=== PATIENT | male | born 1995 | race Caucasian/White ===

== ENCOUNTER 2018-03-29 10:53 | Emergency (ER) | payer BC ==
[2018-03-29] MEDS ORDERED: COLACE PO ONE (11:42)
--- NOTE | 2018-03-29 11:43 | Emergency Department Report ---
Minor Respiratory - HPI Chief Complaint: Earache Stated Complaint: (R) EAR RINGING Time Seen by Provider: 03/29/18 11:41 Duration: 5 Days Pain Location: Ear Severity: moderate Minor Respiratory: Yes Able to Tolerate Fluids, Yes Ear Pain, No Rhinorrhea, No Sore Throat, No Cough, No Sick Contacts, No Hemoptysis, No Chest Pain, No Shortness of Breath, No Fever Other History: Patient is a 2-year-old male comes to the emergency room complaining of decreased hearing in his ears for over a year. He also reports tinnitus. Patient does appear hard of hearing on exam. Denies any other respiratory signs or symptoms. No fever. No trauma. ED Review of Systems ROS: Stated complaint: (R) EAR RINGING Other details as noted in HPI Comment: All other systems reviewed and negative Constitutional: denies: chills, fever Eyes: denies: eye pain ENT: as per HPI, ear pain, hearing loss, other (RINGING IN EAR) Respiratory: denies: cough Cardiovascular: denies: chest pain, palpitations Endocrine: denies: excessive sweating ED Past Medical Hx - Past Medical History Previous Medical History?: No - Surgical History Past Surgical History?: No - Social History Smoking Status: Never Smoker Substance Use Type: None - Medications Home Medications: Home Medications Medication Instructions Recorded Confirmed Last Taken Type Acetaminophen/Codeine [Tylenol #3] 1 tab PO Q6H PRN #25 tab 08/07/14 Unknown Rx Cyclobenzaprine [Flexeril 10mg] 10 mg PO TID PRN #30 tablet 08/07/14 Unknown Rx Ibuprofen [Motrin] 600 mg PO Q8H PRN #60 tablet 08/07/14 Unknown Rx Minor Respiratory Exam - Exam General: Vital signs noted. No distress. Alert and acting appropriately. HEENT: Yes Moist Mucous Membranes, No Pharyngeal Erythema, No Pharyngeal Exudates, No Rhinorrhea, No Conjuctival Injection, No Frontal Tenderness, No Maxillary Tenderness Ear: Both EAC Discharge, Neither TM Bulge, Neither TM Erythema, Neither EAC Pain Neck: Yes Supple, No Adenopathy Lungs: Yes Good Air Exchange, No Wheezes, No Ronchi, No Stridor, No Cough, No Labored Respirations, No Retractions, No Use of Accessory Muscles, No Other Abnormal Lung Sounds Heart: Yes Regular, No Murmur Abdomen: Yes Normal Bowel Sounds, No Tenderness, No Peritoneal Signs Skin: No Rash, No Edema Neurologic: Alert and oriented, no deficits. Musculoskeletal: Unremarkable. ED Course Vital Signs 03/29/18 11:12 Temperature 99 F Pulse Rate 91 H Respiratory 16 Rate Blood Pressure 121/77 O2 Sat by Pulse 99 Oximetry ED Medical Decision Making - Medical Decision Making B WAX IMPACTION COLACE USED TO SOFTEN WAS REMOVED WITH GENTLE NS FLUSH DC HOME W DC INSTRUCTIONS - Differential Diagnosis SIMPLE EAR Critical care attestation.: If time is entered above; I have spent that time in minutes in the direct care of this critically ill patient, excluding procedure time. ED Disposition Clinical Impression: Impacted ear wax Disposition: DC-01 TO HOME OR SELFCARE Is pt being admited?: No Does the pt Need Aspirin: No Condition: Stable Instructions: Cerumen Impaction (ED) Additional Instructions: DO NOT PUT ANYTHING IN YOUR EAR NO FINGER NO QTIP NO PEROXIDE MOTRIN OR TYLENOL FOR PAIN USE CERUMENEX OVER THE COUNTER TO CLEAN YOUR EARS SEVERAL TIMES PER DAY FOLLOW UP WITH PCP OR ENT IF PROBLEM PERSISTS Referrals: ENRIQUE BRUNNER [Primary Care Provider] - 3-5 Days Time of Disposition: 12:25
[2018-03-29 15:29] VITALS: BP 121/77
== END 2018-03-29 12:50 | disposition home or self-care (01) ==
LOC: ED 10:53
DX: H61.21 Impacted cerumen, right ear (principal)
CPT/HCPCS: 99282